=== PATIENT | male | born 1970 | race Caucasian/White ===

== ENCOUNTER 2016-07-25 18:20 | Emergency (ER) | payer MEDICAID ==
[~2016-07-25] VITALS: Ht 182.9 cm; Wt 84.6 kg
[2016-07-25 18:42] VITALS: BP 119/91; PULSE 87; RESP 16; TEMP 98.7; O2SAT 98
[2016-07-25 20:54] VITALS: BP 121/82; PULSE 82; RESP 18; TEMP 98.7; O2SAT 98
--- NOTE | 2016-07-25 21:13 | PD ---
HPI . Right testicular pain. Chief Complaint: Complaint Time Seen by Provider: 21:01 Travel History International Travel<30 days: No Contact w/Intl Traveler<30days: No Traveled to known affect area: No History of Present Illness HPI Patient presents with a 2-3 day history of right testicular pain. He states that there has been a "pea" sized nodule in his right testicle for a year or more. It has become acutely worse over the last couple days. PFSH Past Medical History Medical History: Denies Significant Hx Diminished Hearing: No Tetanus Vaccination: Unknown Influenza Vaccination: No Past Surgical History Surgical History: No Previous Surgery Social History Alcohol Use: No Tobacco Use: Yes (1ppd) Substance Use: No Allergies-Medications (Allergen,Severity, Reaction): Coded Allergies: No Known Allergies (Unverified , 07/25/16) Reported Meds & Prescriptions Reported Meds & Active Scripts Active Ultram (Tramadol HCl) 50 Mg Tab 50 Mg PO Q4H PRN Bactrim DS (Sulfamethoxazole-Trimethoprim) 800-160 Mg Tab 1 Tab PO BID Review of Systems Except as stated in HPI: all other systems reviewed are Neg General / Constitutional: No: Fever, Chills Genitourinary: No: Urgency, Frequency, Dysuria, Discharge Skin: Positive Lesions (right scrotum) Physical Exam Narrative GENERAL: Healthy-appearing young man in no acute distress. SKIN: Warm and dry. HEAD: Atraumatic. Normocephalic. EYES: Pupils equal and round. ENT: No nasal bleeding or discharge. Mucous membranes pink and moist. NECK: Trachea midline. CARDIOVASCULAR: Regular rate and rhythm. RESPIRATORY: No accessory muscle use. : He has an abscess on the right scrotal sac. It is fluctuant and tender. The testicle itself is normal. MUSCULOSKELETAL: No obvious deformities. No edema. NEUROLOGICAL: Awake and alert. No obvious cranial nerve deficits. Motor grossly within normal limits. Normal speech. PSYCHIATRIC: Appropriate mood and affect; insight and judgment normal. Data Data Last Documented VS Vital Signs Date Time Temp Pulse Resp B/P Pulse Ox O2 Delivery O2 Flow Rate FiO2 07/25/16 20:54 98.7 82 18 121/82 98 Room Air Orders Lidocai-Epi 1%-1:100,000 Inj (Xylocaine- (07/25/16 21:15) [facility] Medical Decision Making Medical Screen Exam Complete: Yes Emergency Medical Condition: Yes Differential Diagnosis Differential diagnosis includes but is not limited to epididymitis, testicular torsion, scrotal abscess Narrative Course Patient presents with the chief complaint of right testicular pain. However, it is actually his scrotal sac and not the testicle which is hurting. Procedures Procedure Narrative INCISION AND DRAINAGE OF ABSCESS: The area was prepped and was sterilely draped. A subcutaneous wheal of 1 % Xylocaine with epi with a total number 3 mL was used to anesthetize the area properly. A number 11 scalpel was used to make a 0.5-cm incision across the area of the abscess. The abscess was drained and complex loculations were broken down. There was a cyst and the chau of the cyst were dissected and removed. I am not sure that the entire cyst was adequately removed. Quarter inch iodoform packing was placed in the wound. Sterile dressing applied. Patient advised to have packing removed in two days. Diagnosis Primary Impression: Abscess of scrotal wall Patient Instructions: Abscess (ED), General Instructions Scripts Tramadol (Ultram)50 Mg Tab50 Mg PO Q4H PRN (PAIN) #12 TAB Ref 0 Prov:Mikki Mancini MD 07/25/16 Sulfamethoxazole-Trimethoprim (Bactrim DS)800-160 Mg Tab1 Tab PO BID #20 TAB Ref 0 Prov:Mikki Mancini MD 07/25/16 Disposition: 01 DISCHARGE HOME Condition: Stable Mikki Mancini MD Jul 25, 2016 21:13
[2016-07-25] MEDS ORDERED: LIDOCAINE 1%/EPINEPHrine 1:100,000 SOLN 20 ML VIAL INFIL ONE (21:15)
[2016-07-25] MEDS ORDERED: LIDOCAINE 1%/EPINEPHrine 1:100,000 SOLN 30 ML VIAL INFIL ONE (21:15)
[2016-07-25] MEDS ORDERED: BACT800T5 PO (21:18)
[2016-07-25] MEDS ORDERED: ULTR50TA5 PO (21:18)
== END 2016-07-25 21:47 | disposition home or self-care (01) ==
LOC: PHED 18:20
DX: N49.2 Inflammatory disorders of scrotum (principal); F17.210 Nicotine dependence, cigarettes, uncomplicated
CPT/HCPCS: 55100

== ENCOUNTER 2017-01-16 15:57 | Emergency (ER) | payer MEDICAID ==
[~2017-01-16 15:57] MED LIST: BACT800T5 PO; ULTR50TA5 PO
[2017-01-16 15:59] VITALS: BP 125/91; PULSE 83; RESP 15; TEMP 98.2; O2SAT 98
[2017-01-16] MEDS ORDERED: AMOX500T PO (16:39)
[2017-01-16] MEDS ORDERED: CARB6.5S5 EACH EAR (16:40)
--- NOTE | 2017-01-16 16:40 | PD ---
HPI Chief Complaint: ENT Complaint Time Seen by Provider: 16:35 Travel History International Travel<30 days: No Contact w/Intl Traveler<30days: No Traveled to known affect area: No History of Present Illness HPI 46-year-old male presents emergency department for evaluation of bilateral ear pain 3 days. Patient reports aching/throbbing ear pain unrelieved by over-the- counter Motrin. He denies discharge or drainage from the ears. He denies fever or chills. Symptoms severity mild. No alleviating factors. PFSH Past Medical History Medical History: Denies Significant Hx Diminished Hearing: No Tetanus Vaccination: < 5 Years Influenza Vaccination: No ?: Not Past Surgical History Surgical History: No Previous Surgery Social History Alcohol Use: No Tobacco Use: Yes (1ppd) Substance Use: No Allergies-Medications (Allergen,Severity, Reaction): Coded Allergies: No Known Allergies (Unverified , 01/16/17) Reported Meds & Prescriptions Reported Meds & Active Scripts Active Review of Systems Except as stated in HPI: all other systems reviewed are Neg General / Constitutional: No: Fever Eyes: No: Visual changes HENT: Positive: Earache, No: Headaches Cardiovascular: No: Chest Pain or Discomfort Respiratory: No: Shortness of Breath Gastrointestinal: No: Abdominal Pain Genitourinary: No: Dysuria Physical Exam Narrative GENERAL: Well-nourished, well-developed patient. SKIN: Focused skin assessment warm/dry. HEAD: Normocephalic. EYES: No scleral icterus. No injection or drainage. EARS: Bilateral cerumen impaction. No canal swelling or drainage. No mastoid tenderness. NECK: Supple, trachea midline. No JVD or lymphadenopathy. CARDIOVASCULAR: Regular rate and rhythm without murmurs, gallops, or rubs. RESPIRATORY: Breath sounds equal bilaterally. No accessory muscle use. GASTROINTESTINAL: Abdomen soft, non-tender, nondistended. MUSCULOSKELETAL: No cyanosis, or edema. BACK: Nontender without obvious deformity. No CVA tenderness. Data Data Last Documented VS Vital Signs Date Time Temp Pulse Resp B/P Pulse Ox O2 Delivery O2 Flow Rate FiO2 01/16/17 16:12 18 01/16/17 15:59 98.2 83 125/91 98 MDM Medical Decision Making Medical Screen Exam Complete: Yes Emergency Medical Condition: Yes Differential Diagnosis Otitis media, cerumen impaction, otitis externa Narrative Course 46-year-old male with bilateral ear pain 3 days. On exam patient has bilateral cerumen impaction. TMs are obscured. There is now swelling or drainage to indicate otitis externa. Cerumen removal with irrigation was discussed patient declined requesting antibiotics instead. Patient will be treated for possible otitis media and instructed to use Debrox for cerumen impactions. Diagnosis Primary Impression: Otitis media Qualified Code: H66.93 - Bilateral otitis media, unspecified chronicity, unspecified otitis media type Additional Impression: Cerumen impaction Qualified Code: H61.23 - Bilateral impacted cerumen Referrals: Primary Care Physician Additional Instructions: Take antibiotics as prescribed. Use of Debrox ear drops to loosen the arms. Follow-up the primary doctor for recheck. Take [id number] Motrin [id number] milligrams by mouth every 6-8 hours as needed for pain. Scripts Carbamide Peroxide Otic Drops (Debrox Otic Drops)6.5% Soln5-10 Drop EACH EAR BID PRN (Ear Wax Removal) #1 BOTTLE Ref 0 up to 4 days. Prov:Magali Quinn 01/16/17 Amoxicillin 500 Mg Cth209 Mg PO TID #30 TAB Ref 0 Prov:Magali Quinn 01/16/17 Disposition: 01 DISCHARGE HOME Condition: Stable Magali Quinn Jan 16, 2017 16:40
== END 2017-01-16 16:45 | disposition home or self-care (01) ==
LOC: PHEFT 15:57
DX: H66.93 Otitis media, unspecified, bilateral (principal); H61.23 Impacted cerumen, bilateral; F17.200 Nicotine dependence, unspecified, uncomplicated
CPT/HCPCS: 99283